=== PATIENT | female | born 1935 | race Caucasian/White ===

== ENCOUNTER 2016-06-25 10:35 | Emergency (ER) | payer BC, MEDICARE ==
[~2016-06-25] VITALS: Ht 165.1 cm; Wt 65.8 kg
[2016-06-25 11:56] LABS: BASOPHILS % (AUTO) 0 % (0-2); EOSINOPHILS % (AUTO) 0 % (0-4); LYMPHOCYTES # (AUTO) 0.8 X10^3; MEAN CORPUSCULAR HEMOGLOBIN 32.6 PG (26.0-34.0); MEAN CORPUSCULAR HGB CONC 33.9 g/dL (31.0-37.0); MEAN CORPUSCULAR VOLUME 96 FL (80-100); MEAN PLATELET VOLUME 9.8 FL (6.0-9.5); MONOCYTES # (AUTO) 1.1 X10^3; MONOCYTES % (AUTO) 11 % (3-11); NEUTROPHILS # (AUTO) 8.5 X10^3; NEUTROPHILS % (AUTO) 81 % (51-67); PLATELET COUNT 224 10^3uL (150-450); WHITE BLOOD COUNT 10.48 10^3uL (4.0-11.0)
[2016-06-25 12:10] LABS: ALBUMIN 4.3 g/dL (3.4-5.0); ALKALINE PHOSPHATASE 170 U/L (38-126); BUN/CREATININE RATIO 22 (10-20); CALCULATED IONIZED CALCIUM 3.8 mg/dL (3.8-4.6); CREATINE KINASE 26 U/L (30-135); TOTAL PROTEIN 8.3 g/dL (6.4-8.5)
[2016-06-25] MEDS ORDERED: FUROSEMIDE 40 MG/4 ML (LASIX) VIAL IV ONE (12:45)
[2016-06-25] MEDS: SODIUM CHLORIDE FLUSH 3 ML SYR IV PRN ×2 (12:50→13:04)
[2016-06-25] MEDS ORDERED: SODIUM CHLORIDE FLUSH 10 ML SYR IV PRN (13:10)
[2016-06-25 13:41] LABS: BILIRUBIN,URINE Negative (Negative); CLARITY,URINE Clear; COLOR,URINE Yellow; GLUCOSE, URINE (UA) Negative (Negative); LEUKOCYTE ESTERASE ,URINE Negative (Negative); PH,URINE 6.5 (5.0 - 8.0); UROBILINOGEN,URINE 0.2 mg/dL (0.2-1.0)
--- NOTE | 2016-06-25 13:55 | NUR ---
Dr. Zaman shown pt's last 5 blood pressures- he okays pt's dismissal to home.
[2016-06-25 13:58] LABS: URINE CENTRIFUGED VOLUME <10mL Unspun
[2016-06-25 15:20] VITALS: BP 148/109
== END 2016-06-25 13:58 | disposition home or self-care (01) ==
LOC: ED 10:43
DX: I50.9 Heart failure, unspecified (principal); J90 Pleural effusion, not elsewhere classified; Z87.891 Personal history of nicotine dependence
CPT/HCPCS: 36415; 71020; 80053; 81003; 81015; 82550; 82553; 83880; 84443; 84484; 85025; 85379; 85610; 86140; 93005; 96374; 99285; J1940; 93010; 99284

== ENCOUNTER → 2016-06-27 | Outpatient (CLI) | payer BC, MEDICARE ==
[2016-06-27 15:13] VITALS: BP 132/85
== END ==
LOC: MHUC 14:24
PROVIDERS: ATTEND Physician Assistant
DX: I50.9 Heart failure, unspecified (principal)
CPT/HCPCS: 99213